=== PATIENT | male | born 1995 | race Caucasian/White ===

== ENCOUNTER 2023-03-09 04:00 | Day surgery (SDC) | payer OTHER ==
[2023-03-04 18:08] VITALS: BMI 34.4
[2023-03-09] MEDS ORDERED: ROPIVACAINE HCL 0.5% 30ML VIAL ONE (11:45)
[2023-03-09] MEDS ORDERED: MIDAZOLAM HCL 2 MG/2 ML SINGLE DOSE VIAL ONE (11:46)
[2023-03-09] MEDS ORDERED: PROPOFOL 80 ML ONE (11:49)
[2023-03-09] MEDS ORDERED: ceFAZolin 2 GRAM PREMIX BAG IVPB ONE (12:20)
[2023-03-09] MEDS ORDERED: oxyCODONE HCL 5 MG TABLET PO PRN (13:03)
[2023-03-09] MEDS ORDERED: ONDANSETRON 4 MG/2 ML VIAL IVPUSH PRN (13:03)
[2023-03-09] MEDS ORDERED: LACTATED RINGERS SOLUTION 1,000 ML IV SCH (13:15)
[2023-03-09 14:24] VITALS: RESP 20; TEMP 97.2
[2023-03-09 15:30] VITALS: BP 104/64; PULSE 57
== END 2023-03-09 16:44 | disposition home or self-care (01) ==
LOC: JASU-SURG 04:00
PROVIDERS: ATTEND Orthopaedic Surgery
PROC: 0RHJ44Z Insertion of Internal Fixation Device into Right Shoulder Joint, Percutaneous Endoscopic Approach (ICD-10-PCS; 2023-03-09)
PROC: 0RQJ4ZZ Repair Right Shoulder Joint, Percutaneous Endoscopic Approach (ICD-10-PCS; 2023-03-09)
PROC: 0LS34ZZ Reposition Right Upper Arm Tendon, Percutaneous Endoscopic Approach (ICD-10-PCS; principal; 2023-03-09 12:00)
DX: S43.491A Other sprain of right shoulder joint, initial encounter (principal); M75.21 Bicipital tendinitis, right shoulder; X58.XXXA Exposure to other specified factors, initial encounter; Y93.9 Activity, unspecified; Y92.9 Unspecified place or not applicable
CPT/HCPCS: 29806; 29828; C1713; 94760